=== PATIENT | female | born 1975 ===

== ENCOUNTER 2020-09-24 10:16 | Day surgery (SDC) | payer OTHER ==
[2020-09-24] MEDS ORDERED: DERMOPLAST PAIN78 GM TOP (14:05)
[2020-09-24] MEDS ORDERED: PERCOCET 5-3251 EACH PO (14:05)
== END 2020-09-24 22:15 | disposition home or self-care (01) ==
LOC: CIR.AMB 10:16
PROVIDERS: ATTEND Surgery
DX: K60.3 Anal fistula (principal); K64.1 Second degree hemorrhoids; Z20.822 Contact with and (suspected) exposure to COVID-19